=== PATIENT | female | born 1955 | race Caucasian/White ===

== ENCOUNTER 2021-09-09 14:06 | Emergency (ER) | payer MEDICARE, OTHER, SELFPAY ==
[2021-09-09 15:50] VITALS: BP 155/88; PULSE 89; RESP 18; TEMP 37.4; O2SAT 97; BMI 28.2
--- NOTE | 2021-09-09 16:52 | HMH.EDUTC ---
[facility] [place] Clinical Impression: Bronchitis Sinusitis Qualifiers: Sinusitis location: unspecified location Chronicity: acute Recurrence: non-recurrent Qualified Code(s): J01.90 - Acute sinusitis, unspecified Disposition: Home, Self-Care Condition on Discharge: Good Instructions: DI for Sinusitis Additional Instructions: Drink plenty of fluids. Take tylenol or ibuprofen for pain or fever. Take the medications as directed. Follow up with your regular doctor. GO TO THE ER FOR ANY WORSENING SYMPTOMS Quarantine until you know the results of your covid-19 test. Notify your school or workplace of your results and follow their instructions regarding return to work/school. Don't start the oral steroids until tomorrow, since you had the shot here today. Prescriptions: Promethazine/Dextromethorphan [Promethazine-Dm Syrup] 5 ml PO Q6HP PRN #240 ml PRN Reason: Cough Transmission Status: Received by [facility] #[id number] Fluticasone Propionate [Flonase 50mcg nasal spray 16gm] 1 spr NS DAILY 30 Days #120 each Transmission Status: Received by [facility] # methylPREDNISolone [Medrol] 4 mg PO DIRECTED 6 Days #21 packet Transmission Status: Received by [facility] [employer] # Cefdinir [Omnicef 300mg Capsule] 300 mg PO BID #20 cap Transmission Status: Received by [facility] # Referrals: Provider,Referral, MD [Primary Care Provider] - Time of Disposition: 17:34 Medical Decision Making - Medical Records Medical records reviewed: No: I reviewed the patient's medical records. - Dmitriy Inquiry Pt receiving controlled substance: No Vital Signs: 09/09/21 15:50 09/09/21 17:40 Temperature 99.4 F 99.4 F Temperature Source Oral Pulse Rate 89 Pulse Rate [Left] 89 Respiratory Rate 18 18 Blood Pressure 155/88 H Blood Pressure [Right Arm] 155/88 H Blood Pressure Mean [Right Arm] 110 02 Sat by Pulse Oximetry 97 - Lab Data Lab results reviewed: Yes: I reviewed the patient's lab results. Orders (Tests/Meds): ED MEDICATIONS Discontinued Medications Generic Name Dose Route Start Last Admin Trade Name Freq PRN Reason Stop Dose Admin Ceftriaxone Sodium 1 gm 09/09/21 17:10 09/09/21 17:25 Ceftriaxone 1gm Vial IM 09/09/21 17:11 1 gm ONCE ONE Administration Lidocaine HCl 0 ml 09/09/21 17:10 09/09/21 17:25 Lidocaine 1% 5ml Pf Vial IM 09/09/21 17:11 2 ml ONCE ONE Administration Methylprednisolone Sodium Succinate 125 mg 09/09/21 17:10 09/09/21 17:18 Methylprednisolone Sod Succ 125mg Vial IM 09/09/21 17:11 125 mg ONCE ONE Administration ORDERS Category Date Time Status Covid-19 Nasal PCR ([facility]) Routine Lab 09/09/21 17:11 Received [facility] [place] - General Stated complaint: possible sinus infection Time Seen by Provider: 09/09/21 16:52 Mode of Arrival: Ambulatory Source of Information: Patient Limitations: No Limitations Description of Symptoms (Recalled from Triage Doc. by RN): PT C/O L SINUS PAIN PRESSURE, GREEN L EYE DRAINAGE, AND COUGH. HEENT Symptoms (Recalled from RN notes): Yes Resp Symptoms (Recalled from RN notes): No Skin Symptoms (Recalled from RN notes): No MS Symptoms (Recalled from RN notes): No Functional Status (Recalled from RN notes): WNL - History of Present Illness Provider Complaint: She has a been having sinus congestion, sinus drainage, left ear pain and facial pressure for the past 1 week. She gets sinus infections at times and she feels like she has one now. She denies fever. She has been vaccinated against covid-19 and influenza. - Related Data Previous Rx's Medication Instructions Recorded Cefdinir [Omnicef 300mg Capsule] 300 mg PO BID #20 cap 09/09/21 Fluticasone Propionate [Flonase 1 spr NS DAILY 30 Days #120 each 09/09/21 50mcg nasal spray 16gm] Promethazine/Dextromethorphan 5 ml PO Q6HP PRN #240 ml 09/09/21 [Promethazine-Dm Syrup] methylPREDNISolone [Me
[2021-09-09 17:40] VITALS: BP 155/88; PULSE 89; RESP 18; TEMP 37.4
== END 2021-09-09 17:41 | disposition home or self-care (01) ==
PROVIDERS: Emergency Provider Nurse Practitioner Family
DX: J20.9 Acute bronchitis, unspecified (principal); J01.90 Acute sinusitis, unspecified
CPT/HCPCS: G0463; 96372; 99202; C9803; J0696; U0003; U0005